=== PATIENT | female | born 1950 | race Caucasian/White ===

== ENCOUNTER 2018-10-27 07:32 | Observation (INO) | payer MEDICARE, OTHER ==
[2018-10-27] VITALS (36 sets, daily range): BP systolic 100–169; BP diastolic 55–85; PULSE 64–100; RESP 10–19; Ht 157.5 cm; Wt 82.8 kg
[~2018-10-27] VITALS: Ht 157.5 cm; Wt 82.8 kg
[~2018-10-27 07:32] MED LIST: AMLO1CAP72 PO; DM med; LEVO75TA59 PO; MTF1000T PO; SITA100T11 PO; htn med
--- NOTE | 2018-10-27 07:43 | HPN ---
Date/Time of Note Date/Time of Note DATE: 10/27/18 TIME: 07:43 Interval H&P Admission Note Pt. seen H&P reviewed: No system changes OTIS PÉREZ MD Oct 27, 2018 07:43
[2018-10-27] MEDS ORDERED: COLC0.6T6 PO (08:49)
[2018-10-27] MEDS ORDERED: LEVO100T82 PO (08:49)
[2018-10-27] MEDS ORDERED: AMLO-147 PO (08:49)
[2018-10-27] MEDS ORDERED: ESOM40CA PO (08:50)
[2018-10-27] MEDS ORDERED: LINA5TAB PO (08:50)
[2018-10-27] MEDS ORDERED: INSU100I12 SQ (08:50)
[2018-10-27] MEDS ORDERED: MELO15TA30 PO (08:51)
[2018-10-27] MEDS ORDERED: INSU100I31 SQ (08:51)
--- NOTE | 2018-10-27 09:40 | PREAC ---
Date/Time of Note Date/Time of Note DATE: 10/27/18 TIME: 09:40 Anesthesia Eval and Record Evaluation Time Pre-Procedure Interview DATE: 10/27/18 TIME: 09:40 Age 68 Sex female NPO: 8 hrs Preoperative diagnosis right breast cancer Planned procedure right modified radical mastectomy Past Medical History Past Medical History: Includes Cardio: HTN, CHF Endo: Diabetes, Hypothyroid GI: Obesity Surgery & Anesthesia Issues No known issue Meds Anticoagulation: No Beta Edu within 24 hr: No Reason Beta Edu not given: Pt. not on B-Edu Reported Medications Meloxicam* (Mobic*) 15 Mg Tablet, 15 MG PO DAILY, #30 TAB 10/27/18 Insulin Degludec (Tresiba Flextouch U-100) 100 Unit/1 Ml Insuln.pen, 68 UNIT SQ QHS 10/27/18 Insulin Lispro (Humalog Kwikpen U-100) 100 Unit/1 Ml Insuln.pen, 8 UNIT SQ AC A, EA 10/27/18 Esomeprazole Mag Trihydrate (Nexium) 40 Mg Capsule.dr, 40 MG PO DAILY, #30 CAP 10/27/18 Linagliptin (TRADJENTA) 5 Mg Tablet, 5 MG PO DAILY, TAB 10/27/18 Amlodipine Besylate* (Amlodipine Besylate*) 10 Mg Tablet, 10 MG PO DAILY, #30 TAB 10/27/18 Colchicine* (Colcrys*) 0.6 Mg Tablet, 0.6 MG PO DAILY, TAB 10/27/18 Levothyroxine Sodium* (Levoxyl*) 100 Mcg Tablet, 100 MCG PO BEFORE BREAKFAST, #30 TAB 10/27/18 Discontinued Reported Medications Amlodipine Besylate/Benazepril (Lotrel 5-10 Mg Capsule) 1 Cap Capsule, 1 CAP PO DAILY 08/07/11 Levothyroxine Sodium (Levothroid) 75 Mcg Tablet, 75 MCG PO DAILY 08/07/11 Sitagliptin* (Januvia*) 100 Mg Tablet, 100 MG PO DAILY 08/07/11 Metformin* (Glucophage*) 1,000 Mg Tablet, 1000 MG PO BID 08/07/11 [DM med] No Conflict Check 05/26/10 [htn med] No Conflict Check 05/26/10 Current Medications Sodium Chloride 1,000 ml @ 30 mls/hr Q24H IV ; Start 10/27/18 at 10:00; Status UNV Meds reviewed: Yes Allergies Coded Allergies: Penicillins (Verified Allergy, Unknown, 10/27/18) Allergies Reviewed: Yes Labs/Studies Labs Reviewed: Reviewed by anesthesiologist test: N/A Pre-procedure Exam Last vitals Vital Signs Date Temp Pulse Resp B/P (MAP) Pulse Ox O2 O2 Flow FiO2 Time Delivery Rate 10/27/18 98.1 78 16 164/78 97 Room Air 09:13 (106) Airway: Adequate mouth opening, Adequate thyromental dist Mallampati: Mallampati II Teeth: Normal Lung: Normal Heart: Normal ASA Physical Status ASA physical status: 3 Emergency: None Planned Anesthetic General/MAC: Mask Planned Pain Management Parenteral pain med Pre-operative Attestations Prior to commencing anesthesia and surgery, the patient was re-evaluated, there was verification of: *The patient's identity *The results of appropriate recent lab work and preoperative vital signs *The above evaluation not changing prior to induction *Anesthetic plan, risk benefits, alternative and complications discussed with patient/family; questions answered; patient/family understands, accepts and wishes to proceed. [employer] used KAYY LEA MD Oct 27, 2018 09:40
[2018-10-27] MEDS ORDERED: ONDANSETRON 4 MG INJ IV PRN ×2 (10:00→11:00)
[2018-10-27] MEDS ORDERED: DIPHENHYDRAMINE 50 MG INJ IV PRN ×2 (10:00→11:00)
[2018-10-27] MEDS ORDERED: EPHEDrine SULFATE 50 MG/5 ML SYG IV PRN (10:00)
[2018-10-27] MEDS ORDERED: FENTAnyl 50 MCG/ML VIAL IV PRN (10:00)
[2018-10-27] MEDS ORDERED: SEVOFLURANE 15 MIN ONE (10:00)
[2018-10-27] MEDS ORDERED: OXYCODONE/ACETAMINOPHEN (5/325) TAB PO PRN (10:00)
[2018-10-27] MEDS ORDERED: MEPERIDINE 25 MG INJ IV PRN (10:00)
[2018-10-27] MEDS ORDERED: HYDROmorphONE 1 MG/5 ML IV SYRINGE IV PRN ×2 (10:00)
[2018-10-27] MEDS ORDERED: LABETALOL HCL 20MG INJ IV PRN (10:00)
[2018-10-27] MEDS ORDERED: PROCHLORPERAZINE 10 MG INJ IV PRN (10:00)
[2018-10-27] MEDS: SOD CHLORIDE 0.9% 1,000 ML IV SCH (10:00)
[2018-10-27] MEDS ORDERED: hydrALAzine 20 MG INJ IV PRN (10:00)
[2018-10-27] MEDS ORDERED: PROPOFOL 20 ML ONE (10:55)
[2018-10-27] MEDS ORDERED: LIDOCAINE 2% (SDV) 5 ML INJ ONE (10:55)
[2018-10-27] MEDS ORDERED: MIDAZOLAM 1 MG/ML 2 ML INJ ONE (10:55)
[2018-10-27] MEDS ORDERED: ONDANSETRON 4 MG INJ ONE (10:55)
[2018-10-27] MEDS ORDERED: FAMOTIDINE 20 MG INJ ONE (10:55)
[2018-10-27] MEDS ORDERED: FENTAnyl 50 MCG/ML VIAL ONE (10:56)
[2018-10-27] MEDS ORDERED: ACETAMINOPHEN 325 MG TAB PO PRN (11:00)
[2018-10-27] MEDS ORDERED: ZOLPIDEM 5 MG TAB PO PRN (11:00)
[2018-10-27] MEDS ORDERED: HYDROCODONE/APAP (10/325) TAB PO PRN (11:00)
[2018-10-27] MEDS ORDERED: CIPROFLOXACIN 400MG/D5W 200 ML ONE (11:04)
[2018-10-27] MEDS ORDERED: HYDROmorphONE 2 MG/ML SYG ONE (11:27)
--- NOTE | 2018-10-27 11:53 | OPR ---
Date/Time of Note Date/Time of Note DATE: 10/27/18 TIME: 11:49 Operative Report Procedure Date: Oct 27, 2018 Preoperative Diagnosis Carcinoma right breast Postoperative Diagnosis Carcinoma right breast (final pathology and staging pending ) Operation/Procedure Performed Right modified radical mastectomy Surgeon Otis Pérez MD Socket Puller [place] Christensen Anesthesia Type: general Anesthesiologist: KAYY LEA MD Estimated Blood Loss: 50 - 100 ml's Transfusion none Specimen Right breast and axilla Grafts/Implants none Tubes/Drains 2 #19 round Osmani drains Complications none Pt Condition Post Procedure: stable Disposition: PACU Indications 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 A transverse skin ellipse was marked from the xiphisternum to the axilla encompassing the nipple areolar complex. The skin ellipse was scored sharply circumferentially. The upper flap was dissected to the clavicle. Lower flap was dissected to the rectus sheath. The breast was then dissected from medial to lateral from the pectoralis major fascia to the level of the axilla at the axilla, the axillary fascia was opened. The entire axillary fat pad inferior to the right axillary vein was dissected in continuity with the breast. Vessels and lymphatics encountered were divided with LigaSure. The thoracodorsal nerve was identified and preserved throughout the procedure thus the entire right breast and axilla were submitted as such. Hemostasis was completed with electrocautery. The wound was then irrigated with sterile water. Through 2 separate stabs in the lateral lower right flap two #19 round Osmani drains were placed. The medial drain drained the superior flap. The lateral drain draining the axilla. The drains were secured with 0 silk the skin was closed with yamini. Sponge, needle and instrument counts were reported as correct x2. OTIS PÉREZ MD Oct 27, 2018 11:53
--- NOTE | 2018-10-27 14:26 | PAC ---
Date/Time of Note Date/Time of Note DATE: 10/27/18 TIME: 14:25 Post-Anesthesia Notes Post-Anesthesia Note Last documented vital signs Vital Signs Date Temp Pulse Resp B/P (MAP) Pulse Ox O2 O2 Flow FiO2 Time Delivery Rate 10/27/18 68 17 139/59 97 13:25 (85) 10/27/18 98.0 12:18 Activity: WNL Respiratory function: WNL Cardiovascular function: WNL Mental status: Baseline Pain reasonably controlled: Yes Hydration appropriate: Yes Nausea/Vomiting absent: Yes KAYY LEA MD Oct 27, 2018 14:26
[2018-10-27] MEDS: D5W-0.45 NACL + KCL 20 MEQ 1,000 ML IV SCH ×2 (14:58→20:48)
--- NOTE | 2018-10-27 15:31 | HP ---
Date/Time of Note Date/Time of Note DATE: 10/27/18 TIME: 15:22 Assessment/Plan VTE Prophylaxis SCD applied (from Nsg): Yes SCD contraindicated: other (high risk.) Pharmacological prophylaxis: LMWH Pharm contraindication: other (postop day #1.) Lines/Catheters IV Catheter Type (from Nrsg): Peripheral IV Central line still needed: No Urinary Cath still in place: Yes Reason Cath still needed: urinary retention Assessment/Plan Assessment/Plan ?5d 1)N6310; Unspecified lump in the right breast- unspecified quadrant 2)E1151; Type 2 diabetes mellitus with diabetic peripheral 3)G4700; Insomnia, unspecified 4)I10; Essential (primary) hypertension 5)V29029; Tension-type headache, unspecified, not intractabl 6)I5040; Unspecified combined systolic (congestive) and diastolic (congestive) heart failure 7)E1141; Type 2 diabetes mellitus with diabetic mononeuropathy 8)R42; Dizziness and giddiness 9)I151; Hypertension secondary to other renal disorders 10)F419; Anxiety disorder, unspecified 11)I5042; Chronic combined systolic (congestive) and diastolic (congestive) heart failure 12)R0683; Snoring ICD-10 Assessments: Bilateral breast cancer R1903 Right lower quadrant abdominal I201 Angina pectoris with documented [id number] Pain in left knee R002 Palpitations K5900 Constipation, unspecified R42 Dizziness and giddiness New lung mass 1.5cm on right upper lobe(new founding). S/P total abd. hysterectomyhysterectomy and left [id number] in [facility]. PLAN: Results 24hrs Laboratory Tests Test 10/27/18 08:30 10/27/18 13:37 Bedside Glucose 103 149 HPI/ROS Admit Date/Time Admit Date/Time Oct 27, 2018 at 10:54 Hx of Present Illness After mastectomy. In recovery room. ROS Constitutional: diaphoresis, fatigue, nausea, poor po; No no complaints, No improved, No chills, No disoriented, No febrile, No weight change, No other Eyes: No no complaints, No pain, No discharge, No redness, No visual change, No other ENT: congestion; No no complaints, No bleeding, No pain, No discharge, No dysphagia, No sore throat, No other Respiratory: cough, pleuritic pain, shortness of breath Cardiovascular: chest pain, edema Gastrointestinal: constipation, decreased appetite, nausea; No no complaints, No pain, No blood, No diarrhea, No flatus, No passing stool, No vomiting, No other Genitourinary: dysuria, flank pain; No no complaints, No bleeding, No discharge, No hematuria, No other Musculoskeletal: back pain, neck pain; No no complaints, No restricted range of motion, No swelling, No other Skin: erythema; No no complaints, No bruising, No laceration, No pruritis, No rash, No skin lesions, No other Neurologic: dizziness, headache; No no complaints, No confusion, No focal-weakness, No syncope, No seizure, No other Endocrine: dry skin Lymphatic: No no complaints, No adenopathy, No tender nodes, No lymphadema, No other Psychological: anxiety, depression; No no complaints, No nl mood/affect, No confusion, No suicidal, No other Immunologic: pruritis; No no complaints, No immunodeficiency, No rhinitis, No urticaria, No other PMH/Family/Social Past Medical History Medical History: congestive heart failure, coronary artery disease, diabetes, diverticulitis, GERD, high cholesterol, hypertension, urinary tract infection Medications Current Medications Sodium Chloride 1,000 ml @ 30 mls/hr Q24H IV ; Start 10/27/18 at 10:00 Acetaminophen (Tylenol Tab) 650 mg Q6H PRN PO MILD PAIN(1-3)OR ELEVATED TEMP; Start 10/27/18 at 11:00 Acetaminophen/ Hydrocodone Bitart ([place] (5/325)) 1 tab Q6H PRN PO PAIN LEVEL 6-10; Start 10/27/18 at 11:00 Acetaminophen/ Hydrocodone Bitart ([place] (10/325)) 1 tab Q6H PRN PO PAIN LEVEL 6-10; Start 10/27/18 at 11:00 Ondansetron HCl (Zofran Inj) 4 mg Q6H PRN IV NAUSEA AND/OR VOMITING; Start 10/27/18 at 11:00 Diphenhydramine HCl (Benadryl) 25 mg Q6H PRN IV ITCHING; Start 10/27/18 at 11:00 Pantoprazole (Protonix Iv) 40 mg DAILY@06 IV ; Start 10/28/18 at 06:00 Potassium Chloride/Dextrose/ Sod Cl 1,000 ml @ 100 mls/hr Q10H IV Last administered on 10/27/18at 14:58; Admin Dose 100 MLS/HR; Start 10/27/18 at 10:48 Enoxaparin Sodium (Lovenox) 40 mg DAILY@07 SC ; Start 10/28/18 at 07:00 Zolpidem Tartrate (Ambien) 5 mg PRN PRN PO SLEEP; Start 10/27/18 at 11:00 Morphine Sulfate (morphine) 2-4 MG Q2H PRN PAIN LEVEL 4-10 Q2H PRN IV PAIN; Start 10/27/18 at 11:00 Coded Allergies: Penicillins (Verified Allergy, Unknown, 10/27/18) Past Surgical History Past Surgical Hx: endoscopy, other (s/p lizbeth& left ovaryectomy?.) Family History Significant Family History: heart disease, cancer, diabetes Social History Alcohol Use: none Smoking Status: Never smoker Exam/Review of Systems Vital Signs Vitals Vital Signs Date Temp Pulse Resp B/P (MAP) Pulse Ox O2 O2 Flow FiO2 Time Delivery Rate 10/27/18 68 17 139/59 97 Nasal 2.0 13:25 (85) Cannula 10/27/18 98.0 12:18 Exam Constitutional: alert, oriented, well developed, distress Psych: anxiety, depression; No no complaints, No nl mood/affect, No confusion, No suicidal, No other Head: normocephalic, atraumatic; No lacerations, No hematomas, No other Eyes: EOMI, nl lids, nl sclera; No nl conjunctiva, No PERRL, No icteric, No fundi, disc, No other ENMT: No nl external ears & nose, No nl lips & teeth, No nl nasal mucosa & septum, No mucosa pink and moist, No intubated, No tympanic membranes, No other Neck: bruits, nuchal rigidity Respiratory: clear to auscultation, diminished breath sounds; No normal air movement, No congested cough, No crackles/rales, No intercostal retraction, No labored breathing, No respirations, No tactile fremitus, No wheezing, No other Cardiovascular: regular rate and rhythm, systolic murmur; No nl pulses, No bruits, No diastolic murmur, No gallop, No irregular rhythm, No jugular venous distention (JVD), No murmurs/extra sounds, No rub, No S3, No S4, No other Gastrointestinal: soft, bowel sounds, distended; No nl liver, spleen, No non-tender, No ascites, No firm, No hepatomegaly, No mass, No rebound or guarding, No splenomegaly, No surgical scars, No tender, No other Genitourinary - Female: other (s/p lizbeth.) Musculoskeletal: nl extremities to inspection, joint tenderness, muscle tone (decreasdd.), muscle weakness; No nl gait and stance, No range of motion, No spine non-tender, No swelling, No other Extremities: normal pulses, edema; No calf tenderness, No cyanosis, No clubbing, No pitting pedal edema, No palpable cord, No tenderness, No other Neurological: REGISTERED MASSAGE THERAPIST II-XII intact, nl speech, numbness; No nl mental status, No nl strength, No confused, No DTR's symmetric, No focal weakness, No lethargic, No reflexes, No unresponsive, No other Skin: nl turgor (decreased.), rash or lesions, ecchymosis; No diaphoresis, No laceration, No puncture, No other JONH HARRIS MD Oct 27, 2018 15:31
[2018-10-27] MEDS: MELOXICAM 15 MG TAB PO SCH (16:30)
[2018-10-27] MEDS ORDERED: GLUCAGON 1 MG INJ IM PRN (18:00)
[2018-10-27] MEDS ORDERED: GLUCOSE GEL 15 GRAM TUBE BUCCAL PRN (18:00)
[2018-10-27] MEDS ORDERED: DEXTROSE 50% 50 ML SYRINGE IV PRN ×2 (18:00)
[2018-10-27] MEDS ORDERED: GLUCOSE GEL 15 GRAM TUBE PO PRN ×2 (18:00)
[2018-10-27] MEDS: LINAGLIPTIN 5 MG TABLET PO SCH (18:05)
[2018-10-27] MEDS: AMLODIPINE 10 MG TAB PO SCH (18:06)
[2018-10-27] MEDS: morphine 2 MG INJ IV PRN ×2 (18:24→21:18)
[2018-10-27] MEDS: INSULIN ASPART [NOVOLOG] 3 ML PEN SC SCH ×2 (18:50→20:56)
[2018-10-28] VITALS: BP 119/56; PULSE 66; RESP 18
[2018-10-28] MEDS: D5W-0.45 NACL + KCL 20 MEQ 1,000 ML IV SCH ×2 (01:19→13:51)
[2018-10-28] MEDS: ACCU-CHEK XX SCH (01:22)
[2018-10-28] MEDS: LEVOTHYROXINE 100 MCG TAB PO SCH (06:32)
[2018-10-28] MEDS: PANTOPRAZOLE 40 MG INJ IV SCH (06:32)
[2018-10-28] MEDS: ENOXAPARIN 40 MG/0.4 ML SYG SC SCH (06:34)
[2018-10-28 07:27] VITALS: BP 127/58; PULSE 72; RESP 18
[2018-10-28] MEDS: INSULIN ASPART [NOVOLOG] 3 ML PEN SC SCH ×4 (08:48→21:06)
[2018-10-28] MEDS: MELOXICAM 15 MG TAB PO SCH (08:49)
[2018-10-28] MEDS: LINAGLIPTIN 5 MG TABLET PO SCH (08:49)
[2018-10-28] MEDS: AMLODIPINE 10 MG TAB PO SCH (08:50)
[2018-10-28] MEDS: HYDROCODONE/APAP (5/325) TAB PO PRN (08:52)
--- NOTE | 2018-10-28 09:16 | PN ---
Date/Time of Note Date/Time of Note DATE: 10/28/18 TIME: 09:15 Assessment/Plan VTE Prophylaxis Risk score (from Ns)>0 risk: 6 SCD applied (from [facility]): Yes SCD contraindicated: low risk/ambulating Pharmacological prophylaxis: LMWH Lines/Catheters IV [facility] Type (from [facility]): Peripheral IV Central line still needed: No Urinary Cath still in place: No Reason Cath still needed: urinary retention Assessment/Plan Assessment/Plan 1.S/P right radical mastectomy due to of a cancer(pathology report is pending) 2.DM type 2 better controlled 3.HTN with mild chf 4.MARK of knees and shoulders 5.Dyslipidemia 6.PMS- s/p ELAINE and left oophorectomy 7.Urinary incontinence 8.Obesity with snoring 9.Major depression with memory impairment 10.R1903 Right lower quadrant abdominal pain 11. I201 Angina pectoris with documented spasm 12. [id number] Pain in left knee 13.R002 Palpitations [id number] Constipation, unspecified 15.R42 Dizziness and giddiness 16. New lung mass 1.5cm on right upper lobe(new founding)on preoperative routine cxr. 17.S/P cataractectomy 18.hearing impairment 19.Snoring with apnea 20.Anemia of chronic disease. Result Diagram: 10/28/18 0500 10/28/18 0500 Results 24hrs Laboratory Tests Test 10/27/18 13:37 10/27/18 17:53 10/27/18 20:47 10/28/18 01:21 Bedside Glucose 149 205 202 170 Test 10/28/18 05:00 10/28/18 07:47 10/28/18 08:47 White Blood Count 9.4 Red Blood Count 3.71 L Hemoglobin 10.9 L Hematocrit 33.8 L Mean Corpuscular 91.1 Volume Mean Corpuscular 29.4 Hemoglobin Mean Corpuscular 32.2 Hemoglobin Concent Red Cell 13.2 Distribution Width Platelet Count 123 L Mean Platelet 11.2 H Volume Immature 0.200 Granulocytes % Neutrophils % 69.6 Lymphocytes % 22.8 Monocytes % 6.2 Eosinophils % 1.0 Basophils % 0.2 Nucleated Red 0.0 Blood Cells % Immature 0.020 Granulocytes # Neutrophils # 6.5 Lymphocytes # 2.1 Monocytes # 0.6 Eosinophils # 0.1 Basophils # 0.0 Nucleated Red 0.0 Blood Cells # Sodium Level 143 Potassium Level 3.7 Chloride Level 107 Carbon Dioxide 30 Level Anion Gap 6 Blood Urea 11 Nitrogen Creatinine 0.57 Est Glomerular > 60 Filtrat Rate mL/min Glucose Level 154 Calcium Level 9.0 Lab Scanned Report REFERENCE LAB Bedside Glucose 147 Subjective 24 Hr Interval Summary Free Text/Dictation Chest pain. Constitutional: diaphoresis, poor po, requiring IVF, requiring O2; No no complaints, No improved, No chills, No disoriented, No febrile, No other Eyes: No no complaints, No pain, No discharge, No redness, No visual change, No other ENT: No no complaints, No bleeding, No pain, No congestion, No discharge, No dysphagia, No sore throat, No other Respiratory: cough, shortness of breath; No no complaints, No pain, No pleuritic pain, No sputum, No wheezing, No other Cardiovascular: lightheadedness, orthopenea, palpitations; No no complaints, No chest pain, No edema, No paroxysmal nocturnal dyspnea, No other Gastrointestinal: constipation, decreased appetite, passing stool; No no complaints, No pain, No blood, No diarrhea, No flatus, No nausea, No vomiting, No other Genitourinary: dysuria, flank pain; No no complaints, No bleeding, No discharge, No hematuria, No other Musculoskeletal: back pain, bone/joint pain, neck pain; No no complaints, No restricted range of motion, No swelling, No other Skin: pruritis; No no complaints, No bruising, No erythema, No laceration, No rash, No skin lesions, No other Neurologic: confusion, dizziness, headache; No no complaints, No focal-weakness, No syncope, No seizure, No other Endocrine: No no complaints, No polyuria, No polydypsia, No dry skin, No temp intolerance, No other Lymphatic: No no complaints, No adenopathy, No tender nodes, No lymphadema, No other Psychological: anxiety, confusion; No no complaints, No nl mood/affect, No depression, No suicidal, No other Immunologic: No no complaints, No immunodeficiency, No pruritis, No rhinitis, No urticaria, No other Exam/Review of Systems Exam Vitals Vital Signs Date Temp Pulse Resp B/P (MAP) Pulse Ox O2 O2 Flow FiO2 Time Delivery Rate 10/28/18 98.8 72 18 127/58 96 07:27 (81) 10/27/18 Nasal 2.0 16:45 Cannula Intake and Output 10/27/18 10/27/18 10/28/18 1515:00 23:00 07:00 IntakeIntake Total 800 ml 200 ml 1450 ml OutputOutput Total 45 ml 250 ml 495 ml BalanceBalance 755 ml -50 ml 955 ml Constitutional: alert, oriented, well developed, distress, frail, obese Psych: nl mood/affect, anxiety, depression; No no complaints, No confusion, No suicidal, No other Head: normocephalic, atraumatic; No lacerations, No hematomas, No other Eyes: nl lids, PERRL; No nl conjunctiva, No EOMI, No nl sclera, No icteric, No fundi, disc, No other Neck: bruits, thyromegaly, nuchal rigidity; No supple, No non-tender, No jvd, No masses, No other Respiratory: normal air movement, crackles/rales, diminished breath sounds; No clear to auscultation, No congested cough, No intercostal retraction, No labored breathing, No respirations, No tactile fremitus, No wheezing, No other Cardiovascular: regular rate and rhythm, edema, jugular venous distention (JVD), systolic murmur, other ([address] with trace amount of blood the the suction bulb.); No nl pulses, No bruits, No diastolic murmur, No gallop, No irregular rhythm, No murmurs/extra sounds, No rub, No S3, No S4 Gastrointestinal: nl liver, spleen, bowel sounds, hepatomegaly; No soft, No non-tender, No ascites, No distended, No firm, No mass, No rebound or guarding, No splenomegaly, No surgical scars, No tender, No other Musculoskeletal: joint tenderness, muscle tone, muscle weakness; No nl extremities to inspection, No nl gait and stance, No range of motion, No spine non-tender, No swelling, No other Extremities: No normal pulses, No calf tenderness, No cyanosis, No clubbing, No edema, No pitting pedal edema, No palpable cord, No tenderness, No other Neurological: UNDERWRITING SUPPORT MANAGER II-XII intact, numbness; No nl mental status, No nl speech, No nl strength, No confused, No DTR's symmetric, No focal weakness, No lethargic, No reflexes, No unresponsive, No other Skin: nl turgor (decreased.); No rash or lesions, No diaphoresis, No ecchymosis, No laceration, No puncture, No other Lymph: nl lymph nodes; No enlarged, No nontender, No other Results Results 24hrs Laboratory Tests Test 10/27/18 13:37 10/27/18 17:53 10/27/18 20:47 10/28/18 01:21 Bedside Glucose 149 205 202 170 Test 10/28/18 05:00 10/28/18 07:47 10/28/18 08:47 White Blood Count 9.4 Red Blood Count 3.71 L Hemoglobin 10.9 L Hematocrit 33.8 L Mean Corpuscular 91.1 Volume Mean Corpuscular 29.4 Hemoglobin Mean Corpuscular 32.2 Hemoglobin Concent Red Cell 13.2 Distribution Width Platelet Count 123 L Mean Platelet 11.2 H Volume Immature 0.200 Granulocytes % Neutrophils % 69.6 Lymphocytes % 22.8 Monocytes % 6.2 Eosinophils % 1.0 Basophils % 0.2 Nucleated Red 0.0 Blood Cells % Immature 0.020 Granulocytes # Neutrophils # 6.5 Lymphocytes # 2.1 Monocytes # 0.6 Eosinophils # 0.1 Basophils # 0.0 Nucleated Red 0.0 Blood Cells # Sodium Level 143 Potassium Level 3.7 Chloride Level 107 Carbon Dioxide 30 Level Anion Gap 6 Blood Urea 11 Nitrogen Creatinine 0.57 Est Glomerular > 60 Filtrat Rate mL/min Glucose Level 154 Calcium Level 9.0 Lab Scanned Report REFERENCE LAB Bedside Glucose 147 Medications Medication Current Medications Sodium Chloride 1,000 ml @ 30 mls/hr Q24H IV ; Start 10/27/18 at 10:00 Acetaminophen (Tylenol Tab) 650 mg Q6H PRN PO MILD PAIN(1-3)OR ELEVATED TEMP; Start 10/27/18 at 11:00 Acetaminophen/ Hydrocodone Bitart ([place] (5/325)) 1 tab Q6H PRN PO PAIN LEVEL 6-10 Last administered on 10/28/18at 08:52; Admin Dose 1 TAB; Start 10/27/18 at 11:00 Acetaminophen/ Hydrocodone Bitart ([place] (10/325)) 1 tab Q6H PRN PO PAIN LEVEL 6-10; Start 10/27/18 at 11:00 Ondansetron HCl (Zofran Inj) 4 mg Q6H PRN IV NAUSEA AND/OR VOMITING Last administered on 10/27/18 18:24; Admin Dose 4 MG; Start 10/27/18 at 11:00 Diphenhydramine HCl (Benadryl) 25 mg Q6H PRN IV ITCHING; Start 10/27/18 at 11:00 Pantoprazole (Protonix Iv) 40 mg DAILY@06 IV Last administered on 10/28/18 06:32; Admin Dose 40 MG; Start 10/28/18 at 06:00 Potassium Chloride/Dextrose/ Sod Cl 1,000 ml @ 100 mls/hr Q10H IV Last administered on 10/28/18 01:19; Admin Dose 100 MLS/HR; Start 10/27/18 at 10:48 Enoxaparin Sodium (Lovenox) 40 mg DAILY@07 SC Last administered on 10/28/18 06:34; Admin Dose 40 MG; Start 10/28/18 at 07:00 Zolpidem Tartrate (Ambien) 5 mg PRN PRN PO SLEEP; Start 10/27/18 at 11:00 Morphine Sulfate (morphine) 2-4 MG Q2H PRN PAIN LEVEL 4-10 Q2H PRN IV PAIN Last administered on 10/27/18 21:18; Admin Dose 2 MG; Start 10/27/18 at 11:00 Amlodipine Besylate (Norvasc) 10 mg DAILY PO Last administered on 10/28/18 08:50; Admin Dose 10 MG; Start 10/27/18 at 16:30 Levothyroxine Sodium (Synthroid) 100 mcg BEFORE BREAKFAST PO Last administered on 10/28/18 06:32; Admin Dose 100 MCG; Start 10/28/18 at 07:00 Linagliptin (Tradjenta) 5 mg DAILY PO Last administered on 10/28/18 08:49; Admin Dose 5 MG; Start 10/27/18 at 16:30 Meloxicam (Mobic) 15 mg DAILY PO Last administered on 10/28/18 08:49; Admin Dose 15 MG; Start 10/27/18 at 16:30 Diagnostic Test (Pha) (Accu-Chek) 1 ea 02 XX Last administered on 4/19/19at 01:22; Admin Dose 1 EA; Start 10/28/18 at 02:00 Insulin Aspart (Novolog Insulin Pen) NOVOLOG *MODERATE* ALGORITHM WITH MEALS BEDTIME SC Last administered on 10/28/18at 08:48; Admin Dose 2 UNIT; Start 10/27/18 at 17:55 Miscellaneous Information 1 ea NOTE XX ; Start 10/27/18 at 18:00 Glucose (Glutose) 15 gm Q15M PRN PO DECREASED GLUCOSE; Start 10/27/18 at 18:00 Glucose (Glutose) 22.5 gm Q15M PRN PO DECREASED GLUCOSE; Start 10/27/18 at 18:00 Dextrose (D50w Syringe) 25 ml Q15M PRN IV DECREASED GLUCOSE; Start 10/27/18 at 18:00 Dextrose (D50w Syringe) 50 ml Q15M PRN IV DECREASED GLUCOSE; Start 10/27/18 at 18:00 Glucagon (Glucagen) 1 mg Q15M PRN IM DECREASED GLUCOSE; Start 10/27/18 at 18:00 Glucose (Glutose) 15 gm Q15M PRN BUCCAL DECREASED GLUCOSE; Start 10/27/18 at 18:00 JONH HARRIS MD Oct 28, 2018 09:16
[2018-10-28] MEDS: SOD CHLORIDE 0.9% 1,000 ML IV SCH (09:32)
--- NOTE | 2018-10-28 10:02 | QN ---
Documentation Comment Postoperative day #1 Excellent postoperative recovery Incision is clean JESU drainage serosanguineous Should be able to discharge home tomorrow OTIS PÉREZ MD Oct 28, 2018 10:02
[2018-10-28 12:49] VITALS: BP 126/64; PULSE 70; RESP 18
[2018-10-28 19:51] VITALS: BP 118/65; PULSE 68; RESP 18
[2018-10-29] MEDS: ACCU-CHEK XX SCH (02:12)
[2018-10-29] MEDS: LEVOTHYROXINE 100 MCG TAB PO SCH (06:07)
[2018-10-29] MEDS: PANTOPRAZOLE 40 MG INJ IV SCH (06:07)
[2018-10-29] MEDS: ENOXAPARIN 40 MG/0.4 ML SYG SC SCH (06:13)
[2018-10-29 07:29] VITALS: BP 136/74; PULSE 100; RESP 17
[2018-10-29] MEDS: INSULIN ASPART [NOVOLOG] 3 ML PEN SC SCH ×2 (08:41→11:40)
[2018-10-29] MEDS: MELOXICAM 15 MG TAB PO SCH (08:42)
[2018-10-29] MEDS: LINAGLIPTIN 5 MG TABLET PO SCH (08:43)
[2018-10-29] MEDS: AMLODIPINE 10 MG TAB PO SCH (08:43)
--- NOTE | 2018-10-29 10:31 | QN ---
Documentation Comment Postoperative day #2 Afebrile throughout. Patient is in good spirits. Dressing is clean and dry JESU drainage sanguinous Plan: Cleared for discharge home today with home health. Office follow-up 1 week OTIS PÉREZ MD Oct 29, 2018 10:31
[2018-10-29] MEDS ORDERED: COLCHICINE 0.6 MG TAB PO SCH (14:00)
--- NOTE | 2018-10-29 14:10 | DS ---
Date/Time of Note Date/Time of Note DATE: 10/29/18 TIME: 13:55 Discharge Summary Admission/Discharge Info Admit Date/Time Oct 27, 2018 at 10:54 Discharge Date/Time October 29, 2018 1430 p.m. Discharge Diagnosis 1.S/P right radical mastectomy due to of a cancer(pathology report is pending) 2.DM type 2 better controlled 3.HTN with mild chf 4.MARK of knees and shoulders 5.Dyslipidemia 6.PMS- s/p ELAINE and left oophorectomy 7.Urinary incontinence 8.Obesity with snoring 9.Major depression with memory impairment 10.R1903 Right lower quadrant abdominal pain 11. I201 Angina pectoris with documented spasm 12. [id number] Pain in left knee 13.R002 Palpitations [id number] Constipation, unspecified 15.R42 Dizziness and giddiness 16. New lung mass 1.5cm on right upper lobe(new founding)on preoperative routine cxr. 17.S/P cataractectomy 18.hearing impairment 19.Snoring with apnea Patient Condition: Guarded Hx of Present Illness After mastectomy. In recovery room. Hospital Course Drainage catheters are still in place.Wound is healing with primary t ension. Hemodynamically stable, pain is tolerably controlled. BS better controlled. Home Meds Reported Medications Meloxicam* (Mobic*) 15 Mg Tablet, 15 MG PO DAILY, #30 TAB 10/27/18 Insulin Degludec (Tresiba Flextouch U-100) 100 Unit/1 Ml Insuln.pen, 68 UNIT SQ QHS 10/27/18 Insulin Lispro (Humalog Kwikpen U-100) 100 Unit/1 Ml Insuln.pen, 8 UNIT SQ AC A, EA 10/27/18 Esomeprazole Mag Trihydrate (Nexium) 40 Mg Capsule.dr, 40 MG PO DAILY, #30 CAP 10/27/18 Linagliptin (TRADJENTA) 5 Mg Tablet, 5 MG PO DAILY, TAB 10/27/18 Amlodipine Besylate* (Amlodipine Besylate*) 10 Mg Tablet, 10 MG PO DAILY, #30 TAB 10/27/18 Colchicine* (Colcrys*) 0.6 Mg Tablet, 0.6 MG PO DAILY, TAB 10/27/18 Levothyroxine Sodium* (Levoxyl*) 100 Mcg Tablet, 100 MCG PO BEFORE BREAKFAST, #30 TAB 10/27/18 Discontinued Reported Medications Amlodipine Besylate/Benazepril (Lotrel 5-10 Mg Capsule) 1 Cap Capsule, 1 CAP PO DAILY 08/07/11 Levothyroxine Sodium (Levothroid) 75 Mcg Tablet, 75 MCG PO DAILY 08/07/11 Sitagliptin* (Januvia*) 100 Mg Tablet, 100 MG PO DAILY 08/07/11 Metformin* (Glucophage*) 1,000 Mg Tablet, 1000 MG PO BID 08/07/11 [DM med] No Conflict Check 05/26/10 [htn med] No Conflict Check 05/26/10 Follow-up Plan in 5 days in 10 days. Primary Care Provider Cassius Harris MD Time spent on discharge: > 30 minutes Pending Labs Laboratory Tests Test 10/28/18 17:57 10/28/18 20:58 10/29/18 01:35 10/29/18 08:33 Bedside 159 185 154 191 Glucose mg/dL (70-220) mg/dL (70-220) mg/dL (70-220) mg/dL (70-220) Test 10/29/18 12:15 Bedside 128 Glucose mg/dL (70-220) CASSIUS HARRIS MD Oct 29, 2018 14:06
--- NOTE | 2018-10-29 14:31 | PDOCDIS ---
Discharge Instructions DIAGNOSIS Discharge Diagnosis 1.S/P right radical mastectomy due to of a cancer(pathology report is pending) 2.DM type 2 better controlled 3.HTN with mild chf 4.MARK of knees and shoulders 5.Dyslipidemia 6.PMS- s/p ELAINE and left oophorectomy 7.Urinary incontinence 8.Obesity with snoring 9.Major depression with memory impairment 10.R1903 Right lower quadrant abdominal pain 11. I201 Angina pectoris with documented spasm 12. [id number] Pain in left knee 13.R002 Palpitations [id number] Constipation, unspecified 15.R42 Dizziness and giddiness 16. New lung mass 1.5cm on right upper lobe(new founding)on preoperative routine cxr. 17.S/P cataractectomy 18.hearing impairment 19.Snoring with apnea CONDITION [id number] Patient Condition: [id number] Guarded HOME CARE INSTRUCTIONS: [id number] Diet Instructions: [id number] Reduced Calorie ACTIVITY: [id number] Activity Restrictions: [id number] Slowly Increase Activity Rest between Activity Avoid heavy lifting Do not Drive Do not operate Machinery Avoid Heavy Housework [id number] Bathing Restrictions: [id number] Tub Bath FOLLOW UP/APPOINTMENTS Follow-up Plan in 5 days in 10 days. JONH HARRIS MD Oct 29, 2018 14:31
[2018-10-29] MEDS ORDERED: DIPH50VI IV (14:40)
[2018-10-29] MEDS ORDERED: ZOLP5TAB PO (14:40)
[2018-10-29] MEDS ORDERED: ACET325T33 PO (14:40)
[2018-10-29] MEDS ORDERED: HYDR-3609 PO (14:40)
[2018-10-29] MEDS: HYDROCODONE/APAP (5/325) TAB PO PRN (15:12)
[2018-10-30] MEDS ORDERED: PANTOPRAZOLE (EC) 40 MG TAB PO SCH (06:00)
== END 2018-10-29 15:30 | disposition home or self-care (01) ==
LOC: SDS 07:32 → INTOOBSV 10:54 → REC 10:54 → SDS 10:54 → MS1 13:45
PROVIDERS: ADMIT Surgery; ATTEND Surgery
DX: C50.911 Malignant neoplasm of unspecified site of right female breast (principal); E11.9 Type 2 diabetes mellitus without complications; I10 Essential (primary) hypertension; E78.5 Hyperlipidemia, unspecified; G47.33 Obstructive sleep apnea (adult) (pediatric); E66.9 Obesity, unspecified; F32.9 Major depressive disorder, single episode, unspecified; D64.9 Anemia, unspecified
CPT/HCPCS: 19307; 80048; 82962; 85025; 88307; 97161; 97165; C9113; G0378; J0744; J1170; J1650; J1815; J2250; J2270; J2405; J3010; J3480; J7030